=== PATIENT | female | born 1995 | race Two or more races ===

== ENCOUNTER 2019-04-07 14:43 | Emergency (ER) | payer MEDICAID, OTHER ==
[~2019-04-07] VITALS: Ht 172.7 cm; Wt 49.9 kg
[2019-04-07 17:24] VITALS: BP 125/72
--- NOTE | 2019-04-07 17:24 | NUR ---
Patient discharged to home in stable condition. Written and verbal after care instructions given. Patient verbalizes understanding of instruction.
== END 2019-04-07 17:26 | disposition home or self-care (01) ==
LOC: ER 14:43
DX: S29.011A Strain of muscle and tendon of front wall of thorax, initial encounter (principal); X58.XXXA Exposure to other specified factors, initial encounter; Y93.89 Activity, other specified; Y92.89 Other specified places as the place of occurrence of the external cause; Y99.8 Other external cause status
CPT/HCPCS: 71045-TC